=== PATIENT | male | born 1965 | race African-American/Black ===

== ENCOUNTER 2017-07-27 17:54 | Inpatient (IN) | payer MEDICARE ==
[~2017-07-27] VITALS: Ht 185.4 cm; Wt 87.8 kg
[2017-07-27] MEDS ORDERED: ACETAMINOPHEN 325 MG TABLET PO ONE (18:15)
[2017-07-27 18:17] LABS: BASOPHILS % (AUTO) 0.1 % (0.0-2.0); EOSINOPHILS % (AUTO) 0.1 % (1.0-6.0); HEMOGLOBIN 12.3 g/dL (13.5-17.5); LYMPHOCYTES # (AUTO) 2.7 K/uL (1.0-4.8); LYMPHOCYTES % (AUTO) 19.7 % (22.0-44.0); MEAN CORPUSCULAR HEMOGLOBIN 25.7 pg (26.0-34.0); MEAN CORPUSCULAR HGB CONC 32.4 G/dL (31.0-37.0); MEAN CORPUSCULAR VOLUME 79 fL (80-100); MONOCYTES # (AUTO) 1.1 K/uL (0.1-1.0); MONOCYTES % (AUTO) 8.2 % (2.0-9.0); NEUTROPHILS # (AUTO) 9.8 K/uL (1.8-7.7); NEUTROPHILS % (AUTO) 71.9 % (40.0-70.0); PLATELET COUNT (AUTO) 341 K/uL (150-450); RED CELL DISTRIBUTION WIDTH 16.9 % (11.5-14.5); WHITE BLOOD COUNT (AUTO) 13.7 K/uL (4.5-11.0)
[2017-07-27 18:26] LABS: ANION GAP 6 mmol/L (8-16); CALCIUM, TOTAL 8.9 mg/dL (8.8-10.5); CARBON DIOXIDE 26 mmol/L (22-29); CHLORIDE 95 mmol/L (98-107); CREATININE 1.22 mg/dL (0.60-1.30); GLOMERULAR FILTR. RATE CALC > 60 mL/min (>60); POTASSIUM 4.2 mmol/L (3.5-5.1); SODIUM SERUM 127 mmol/L (136-145); UREA NITROGEN, BLOOD 16 mg/dL (7-18)
[2017-07-27 18:33] LABS: ALANINE AMINOTRANSFERASE 26 U/L (12-78); ALBUMIN 2.3 g/dL (3.4-5.0); ASPARTATE AMINOTRANSFERASE 38 U/L (15-37); BILIRUBIN,TOTAL 0.6 mg/dL (0.1-1.0); TOTAL PROTEIN, SERUM 11.2 g/dL (6.4-8.2)
[2017-07-27] MEDS ORDERED: CefTRIAXone 1 GM/DEXTROSE 50 ML IV ONE (18:45)
[2017-07-27] MEDS ORDERED: AZITHROMYCIN 500 MG/NS 250 ML IV ONE (18:45)
[2017-07-27] MEDS ORDERED: 0.9% SODIUM CHLORIDE 10 ML SYRINGE IVP PRN ×3 (18:45→21:45)
[2017-07-27] MEDS ORDERED: SODIUM CHLORIDE 0.9% 1,000 ML IV ONE ×2 (18:45)
[2017-07-27 19:02] LABS: LACTATE DEHYDROGENASE 188 U/L (85-227)
[2017-07-27 19:06] LABS: INR 1.2 (0.9-1.1); PROTHROMBIN TIME 12.6 SEC (9.4-11.6)
[2017-07-27] MEDS ORDERED: ONDANSETRON HCL 4 MG/2 ML VIAL IVP PRN (19:45)
[2017-07-27] MEDS ORDERED: ACETAMINOPHEN 325 MG TABLET PO PRN ×2 (19:45→21:45)
[2017-07-27 20:00] VITALS: BP 115/71
[2017-07-27] MEDS: DOCUSATE SODIUM 100 MG CAPSULE PO SCH (21:45)
[2017-07-27] MEDS ORDERED: MAGNESIUM HYDROXIDE SUSPENSION 30 ML UDCUP PO PRN (21:45)
[2017-07-27] MEDS ORDERED: OxyCODONE HCL/ACETAMINOPHEN 5-325 MG TABLET PO PRN (21:45)
[2017-07-28] VITALS (7 sets, daily range): BP systolic 100–138; BP diastolic 65–83
[2017-07-28] MEDS ORDERED: INFLUENZA VIRUS VACCINE QVS 2017-18 (3YR+)/PF 60 MCG/0.5 ML SYRINGE IM ONE (00:30)
[2017-07-28] MEDS ORDERED: PNEUMOCOCCAL VACCINE POLYVALENT 0.5 ML VIAL [PPSV23] IM ONE (00:30)
[2017-07-28] MEDS: GuaiFENesin/D-METHORPHAN [SUGAR-FREE] 200-20MG/10 ML SYRUP UDCUP PO PRN ×3 (02:11→20:29)
[2017-07-28] MEDS: ONDANSETRON HCL 4 MG/2 ML VIAL IVP PRN (02:41)
[2017-07-28 06:19] LABS: BASOPHILS # (AUTO) 0.03 K/uL (0.00-0.20); BASOPHILS % (AUTO) 0.3 % (0.0-2.0); EOSINOPHILS # (AUTO) 0.03 K/uL (0.00-0.70); EOSINOPHILS % (AUTO) 0.26 % (1.0-6.0); HEMATOCRIT 33.4 % (41-53); HEMOGLOBIN 10.7 g/dL (13.5-17.5); LYMPHOCYTES % (AUTO) 20.8 % (22.0-44.0); MEAN CORPUSCULAR HEMOGLOBIN 25.3 pg (26.0-34.0); MEAN CORPUSCULAR HGB CONC 32.1 G/dL (31.0-37.0); MEAN CORPUSCULAR VOLUME 79 fL (80-100); MONOCYTES # (AUTO) 1.1 K/uL (0.1-1.0); MONOCYTES % (AUTO) 11.6 % (2.0-9.0); NEUTROPHILS # (AUTO) 6.5 K/uL (1.8-7.7); NEUTROPHILS % (AUTO) 67.1 % (40.0-70.0); PLATELET COUNT (AUTO) 293 K/uL (150-450); RED BLOOD CELL COUNT(AUTO) 4.23 MIL/uL (4.50-5.90); RED CELL DISTRIBUTION WIDTH 16.3 % (11.5-14.5); WHITE BLOOD COUNT (AUTO) 9.7 K/uL (4.5-11.0)
[2017-07-28 06:55] LABS: ALANINE AMINOTRANSFERASE 23 U/L (12-78); ANION GAP 7 mmol/L (8-16); ASPARTATE AMINOTRANSFERASE 38 U/L (15-37); BILIRUBIN,TOTAL 0.4 mg/dL (0.1-1.0); CALCIUM, TOTAL 8.2 mg/dL (8.8-10.5); CARBON DIOXIDE 24 mmol/L (22-29); CHLORIDE 100 mmol/L (98-107); CREATININE 0.99 mg/dL (0.60-1.30); GLOMERULAR FILTR. RATE CALC > 60 mL/min (>60); POTASSIUM 4.1 mmol/L (3.5-5.1); SODIUM SERUM 131 mmol/L (136-145); TOTAL PROTEIN, SERUM 9.6 g/dL (6.4-8.2); UREA NITROGEN, BLOOD 16 mg/dL (7-18)
[2017-07-28 07:47] LABS: PROCALCITONIN (PCT) 0.07 ng/mL (<0.50)
[2017-07-28] MEDS: DOCUSATE SODIUM 100 MG CAPSULE PO SCH ×3 (08:02→20:29)
[2017-07-28] MEDS: PANTOPRAZOLE SODIUM 40 MG/VIAL IVP SCH (08:02)
[2017-07-28] MEDS ORDERED: FLUCONAZOLE 200 MG TABLET PO SCH (09:00)
[2017-07-28] MEDS ORDERED: GABA-531 PO (10:43)
[2017-07-28] MEDS ORDERED: ABAC1TAB15 PO (10:45)
[2017-07-28] MEDS ORDERED: *PATIENT'S OWN MED [ENTER DRUG, DOSE, FREQUENCY IN COMMENTS] CLINICAL ONE ×2 (10:45)
[2017-07-28] MEDS: TRIUMEQ PO SCH (16:01)
[2017-07-28 16:11] LABS: INFLUENZA TYPE B NEGATIVE FOR TYPE B (NEGATIVE)
[2017-07-28] MEDS ORDERED: SODIUM CHLORIDE 0.9% 250 ML IV ONE (20:26)
[2017-07-28] MEDS: OxyCODONE HCL/ACETAMINOPHEN 5-325 MG TABLET PO PRN (20:28)
[2017-07-28] MEDS: GABAPENTIN 300 MG CAPSULE PO SCH (20:29)
[2017-07-28] MEDS: CefTRIAXone 1 GM/DEXTROSE 50 ML IV SCH (20:30)
[2017-07-28] MEDS ORDERED: AZITHROMYCIN 500 MG/NS 250 ML IV SCH (21:00)
[2017-07-29 04:06] LABS: LYMPHS % FOR CD4 COUNT 21 % (Not Estab.); LYMPHS ABS FOR CD4 COUNT 2.2 x10E3/uL (0.7-3.1); WBC FOR CD4 COUNT 10.4 x10E3/uL (3.4-10.8)
[2017-07-29] MEDS: OxyCODONE HCL/ACETAMINOPHEN 5-325 MG TABLET PO PRN (04:27)
[2017-07-29 04:38] VITALS: BP 104/74
[2017-07-29] MEDS: GuaiFENesin/D-METHORPHAN [SUGAR-FREE] 200-20MG/10 ML SYRUP UDCUP PO PRN ×2 (05:42→18:20)
[2017-07-29 07:20] VITALS: BP 104/68
[2017-07-29] MEDS: ONDANSETRON HCL 4 MG/2 ML VIAL IVP PRN (07:33)
[2017-07-29] MEDS: PANTOPRAZOLE SODIUM 40 MG/VIAL IVP SCH (08:42)
[2017-07-29] MEDS: TRIUMEQ PO SCH (08:42)
[2017-07-29] MEDS: DOCUSATE SODIUM 100 MG CAPSULE PO SCH ×2 (08:43→20:45)
[2017-07-29] MEDS: GABAPENTIN 300 MG CAPSULE PO SCH ×2 (08:43→20:45)
[2017-07-29] MEDS: DOXYCYCLINE 100 MG CAPSULE PO SCH ×2 (08:44→20:45)
[2017-07-29 11:22] VITALS: BP 104/69
[2017-07-29 12:27] LABS: ABSOLUTE CD4 COUNT 211 /uL (359-1519); PERCENT CD4 CELLS 9.6 % (30.8-58.5)
[2017-07-29 15:39] VITALS: BP 99/62
[2017-07-29 19:52] VITALS: BP 111/69
[2017-07-29] MEDS: CefTRIAXone 1 GM/DEXTROSE 50 ML IV SCH (20:46)
[2017-07-30] VITALS (7 sets, daily range): BP systolic 107–114; BP diastolic 68–76
[2017-07-30] MEDS ORDERED: IOVERSOL 350 MG/ML 150 ML VIAL ONE (09:41)
[2017-07-30] MEDS: GABAPENTIN 300 MG CAPSULE PO SCH ×2 (10:34→20:24)
[2017-07-30] MEDS: DOCUSATE SODIUM 100 MG CAPSULE PO SCH ×2 (10:35→20:24)
[2017-07-30] MEDS: TRIUMEQ PO SCH (10:35)
[2017-07-30] MEDS: PANTOPRAZOLE SODIUM 40 MG/VIAL IVP SCH (10:38)
[2017-07-30] MEDS: DOXYCYCLINE 100 MG CAPSULE PO SCH ×2 (10:38→20:24)
[2017-07-30] MEDS ORDERED: SODIUM CHLORIDE 3% 15 ML NEB SOLUTION NEB ONE (13:39)
[2017-07-30] MEDS: CefTRIAXone 1 GM/DEXTROSE 50 ML IV SCH (20:23)
[2017-07-31 05:57] VITALS: BP 108/72
[2017-07-31 07:26] VITALS: BP 117/78
[2017-07-31] MEDS: DOCUSATE SODIUM 100 MG CAPSULE PO SCH ×2 (09:00→20:53)
[2017-07-31] MEDS: GABAPENTIN 300 MG CAPSULE PO SCH ×2 (09:25→20:53)
[2017-07-31] MEDS: TRIUMEQ PO SCH (09:25)
[2017-07-31] MEDS: DOXYCYCLINE 100 MG CAPSULE PO SCH ×2 (09:25→20:53)
[2017-07-31] MEDS: PANTOPRAZOLE SODIUM 40 MG/VIAL IVP SCH (09:25)
[2017-07-31 10:08] LABS: ORGANISM ID Not indicated.
[2017-07-31 11:06] VITALS: BP 107/73
[2017-07-31 15:19] VITALS: BP 123/75
[2017-07-31] MEDS: CefTRIAXone 1 GM/DEXTROSE 50 ML IV SCH (20:53)
[2017-07-31 20:58] VITALS: BP 117/73
[2017-08-01] VITALS (7 sets, daily range): BP systolic 12–122; BP diastolic 71–80
[2017-08-01] MEDS: DOCUSATE SODIUM 100 MG CAPSULE PO SCH ×2 (09:00→21:34)
[2017-08-01] MEDS: TRIUMEQ PO SCH (09:19)
[2017-08-01] MEDS: GABAPENTIN 300 MG CAPSULE PO SCH ×2 (09:19→21:34)
[2017-08-01] MEDS: DOXYCYCLINE 100 MG CAPSULE PO SCH ×2 (09:19→21:34)
[2017-08-01] MEDS: PANTOPRAZOLE SODIUM 40 MG/VIAL IVP SCH (09:20)
[2017-08-01] MEDS: CefTRIAXone 1 GM/DEXTROSE 50 ML IV SCH (21:34)
[2017-08-02 05:16] VITALS: BP 107/77
[2017-08-02 07:50] VITALS: BP 114/76
[2017-08-02] MEDS: PANTOPRAZOLE SODIUM 40 MG/VIAL IVP SCH (08:40)
[2017-08-02] MEDS: DOCUSATE SODIUM 100 MG CAPSULE PO SCH (08:43)
[2017-08-02] MEDS: DOXYCYCLINE 100 MG CAPSULE PO SCH (09:52)
[2017-08-02] MEDS: TRIUMEQ PO SCH (09:52)
[2017-08-02] MEDS: GABAPENTIN 300 MG CAPSULE PO SCH (09:52)
[2017-08-02 11:34] VITALS: BP 112/70
[2017-08-02 15:56] VITALS: BP 112/75
[2017-08-03 15:11] LABS: ASPERGILLUS GALACTOMANNAN-EIA 0.07 Index (0.00-0.49)
[2017-08-06 17:16] LABS: COCCI IGG TITER COMP.FIX-KERN <1:2; COCCIOIDES AB IGG (ID)-KERN Non Reactive; COCCIOIDES AB IGM (ID)-KERN Non Reactive
== END 2017-08-02 17:05 | disposition left against medical advice (07) | DRG 871 ==
LOC: EMS 17:55 → 5N 18:30
PROVIDERS: ADMIT Internal Medicine; ATTEND Internal Medicine
DX: A41.9 Sepsis, unspecified organism (principal); J18.9 Pneumonia, unspecified organism; B37.0 Candidal stomatitis; E87.1 Hypo-osmolality and hyponatremia; R13.10 Dysphagia, unspecified; F41.9 Anxiety disorder, unspecified; I10 Essential (primary) hypertension; Z85.89 Personal history of malignant neoplasm of other organs and systems; Z88.8 Allergy status to other drugs, medicaments and biological substances; Z53.21 Procedure and treatment not carried out due to patient leaving prior to being seen by health care provider; Z21 Asymptomatic human immunodeficiency virus [HIV] infection status
CPT/HCPCS: 71020; 71250; 74178; 83605; 83615; 84145; 86171; 86361; 86403; 86480; 86738; 87015; 87040; 87070; 87081; 87147; 87205; 87305; 87430; 87449; 87804; 87899; 93005; 94640; 96374; 96375; 99291; C9113; J0456; J0696; J2405; J7030; J7050